=== PATIENT | male | born 1965 | race Caucasian/White ===

== ENCOUNTER 2017-05-21 16:46 | Inpatient (IN) | payer MEDICAID ==
[~2017-05-21] VITALS: Ht 30.5 cm; Wt 85.7 kg
[2017-05-21 18:00] VITALS: BP 121/68
[2017-05-21] MEDS ORDERED: HYDROcodone-ACET 5/325MG TAB PO PRN (18:15)
[2017-05-21] MEDS ORDERED: ALPRAZolam 0.5 MG TAB PO PRN (18:15)
[2017-05-21] MEDS ORDERED: NITROGLYCERIN 0.4 MG SL TAB SL PRN (18:15)
[2017-05-21] MEDS ORDERED: METOPROLOL TARTRATE 1MG/1ML-5ML VIAL IV PRN (18:15)
[2017-05-21] MEDS ORDERED: MORPHINE SULFATE 4 MG/ML SYR/VIAL IV PRN (18:15)
[2017-05-21] MEDS ORDERED: ACETAMINOPHEN 500 MG TAB PO PRN (18:15)
[2017-05-21] MEDS ORDERED: WARF2TAB55 PO (19:00)
[2017-05-21] MEDS ORDERED: DIGO1TAB35 PO (19:00)
[2017-05-21] MEDS ORDERED: METO-158 PO (19:00)
[2017-05-21 20:09] LABS: Basophils # (auto) 0.1 uL; Basophils % (auto) 1.2 % (0.0-2.0); Eosinophils # (auto) 0.1 uL; Eosinophils % (auto) 1.3 % (0.0-7.0); Hematocrit 41.4 % (41.0-53.0); Hemoglobin 13.4 g/dL (13.5-17.5); Lymphocytes # (auto) 1.5 uL; Lymphocytes % (auto) 17.6 % (10.0-50.0); Mean Corpuscular Hemoglobin 29.9 pg (28.0-32.0); Mean Corpuscular Hgb Conc. 32.3 g/dL (32.0-36.0); Mean Corpuscular Volume 92.7 fL (80.0-100.0); Monocytes # (auto) 1.1 uL; Neutrophils # (auto) 5.6 uL; Neutrophils % (auto) 66.9 % (37.0-80.0); Nucleated Red Blood Cells % 0.2 %; Platelet Count (auto) 164 10^3/uL (140-450); Red Blood Cells 4.47 10^6/uL (4.5-5.90); Red Cell Distribution Width 17.3 % (11.8-14.3); White Blood Cell 8.4 10^3/uL (4.4-10.8)
[2017-05-21 20:18] LABS: INR 1.69 (0.9-1.15); Partial Thromboplastin Time 29.4 sec (22.64-33.71); Prothrombin Time 18.5 sec (9.37-12.3)
[2017-05-21 20:38] LABS: Albumin 2.7 g/dL (3.4-5.0); BUN/Creatinine Ratio 16.9; Calcium 7.9 mg/dL (8.5-10.1); Potassium 4.2 mmol/L (3.5-5.1)
[2017-05-21 20:47] LABS: Bilirubin, Total 1.8 mg/dL (0.2-1.0)
[2017-05-21] MEDS: SODIUM CHLORIDE 0.9% 1,000 ML IV SCH (21:16)
[2017-05-21] MEDS: METOPROLOL TARTRATE 50 MG TAB PO SCH (21:16)
[2017-05-21 22:16] VITALS: BP 114/62
[2017-05-22] VITALS (10 sets, daily range): BP systolic 96–136; BP diastolic 56–93
[2017-05-22] MEDS ORDERED: LIDOCAINE 2%HCL (LOCAL ANESTH.) INJ 20ML MDV ONE ×2 (07:14→07:31)
[2017-05-22] MEDS ORDERED: fentaNYL CITRATE 100 MCG/2 ML VL ONE (07:33)
[2017-05-22] MEDS ORDERED: MIDAZOLAM HCL 1MG/1ML-2 ML VIAL ONE (07:33)
[2017-05-22] MEDS ORDERED: ceFAZolin 1GM/50ML 100 ML IV ONE (07:40)
[2017-05-22] MEDS ORDERED: FUROSEMIDE 20 MG/2 ML VIAL ONE (08:24)
[2017-05-22] MEDS ORDERED: FUROSEMIDE 20 MG/2 ML VIAL IV ONE (08:30)
[2017-05-22] MEDS ORDERED: HEPARIN SODIUM (PORCINE) 5000 UNITS/ML 1ML VIAL SC ONE (09:00)
[2017-05-22] MEDS ORDERED: DOBUTamine 1000MCG/ML 250 ML IV ONE (09:13)
[2017-05-22] MEDS ORDERED: DOBUTamine 1000MCG/ML 250 ML IV SCH (09:15)
[2017-05-22] MEDS ORDERED: SODIUM BICARBONATE 8.4 % INJ 50ML VIAL IV ONE ×2 (09:15)
[2017-05-22] MEDS ORDERED: SODIUM BICARBONATE 8.4% INJ 50ML SYRINGE ONE (09:16)
[2017-05-22] MEDS: METOPROLOL TARTRATE 50 MG TAB PO SCH (10:00)
[2017-05-22] MEDS: DOBUTamine 1000MCG/ML 250 ML IV SCH ×2 (14:18→21:00)
[2017-05-22] MEDS ORDERED: WARFARIN SODIUM 5 MG TAB PO ONE (17:00)
[2017-05-22] MEDS: SODIUM CHLORIDE 0.9% 1,000 ML IV SCH (22:00)
[2017-05-23] VITALS: BP 106/67
[2017-05-23 04:00] VITALS: BP 117/81
[2017-05-23 06:33] LABS: Basophils # (auto) 0.1 uL; Basophils % (auto) 1.1 % (0.0-2.0); Eosinophils # (auto) 0.1 uL; Eosinophils % (auto) 1.9 % (0.0-7.0); Hematocrit 38.1 % (41.0-53.0); Hemoglobin 12.6 g/dL (13.5-17.5); Lymphocytes # (auto) 1.3 uL; Lymphocytes % (auto) 18.4 % (10.0-50.0); Mean Corpuscular Hemoglobin 30.5 pg (28.0-32.0); Mean Corpuscular Hgb Conc. 33.1 g/dL (32.0-36.0); Mean Corpuscular Volume 92.3 fL (80.0-100.0); Monocytes # (auto) 0.8 uL; Monocytes % (auto) 11.8 % (0.0-12.0); Neutrophils # (auto) 4.7 uL; Neutrophils % (auto) 66.8 % (37.0-80.0); Nucleated Red Blood Cells % 0.2 %; Platelet Count (auto) 152 10^3/uL (140-450); Red Blood Cells 4.13 10^6/uL (4.5-5.90); Red Cell Distribution Width 17.2 % (11.8-14.3); White Blood Cell 7.1 10^3/uL (4.4-10.8)
[2017-05-23 06:35] LABS: INR 1.44 (0.9-1.15); Partial Thromboplastin Time 28.3 sec (22.64-33.71); Prothrombin Time 15.7 sec (9.37-12.3)
[2017-05-23 06:42] LABS: Calcium 8.2 mg/dL (8.5-10.1); Potassium 4.2 mmol/L (3.5-5.1)
[2017-05-23 08:00] VITALS: BP 114/85
[2017-05-23] MEDS: METOPROLOL TARTRATE 50 MG TAB PO SCH (10:22)
[2017-05-23 11:21] VITALS: BP 114/85
[2017-05-23 12:31] VITALS: BP 119/65
== END 2017-05-23 16:51 | disposition home or self-care (01) | DRG 175 ==
LOC: TELE-WESTW 16:46 → DOU IN ICU 05-22 11:55
PROVIDERS: ADMIT Internal Medicine; ATTEND Internal Medicine
PROC: 02583ZZ Destruction of Conduction Mechanism, Percutaneous Approach (ICD-10-PCS; principal; 2017-05-22)
PROC: 02K83ZZ Map Conduction Mechanism, Percutaneous Approach (ICD-10-PCS; 2017-05-22)
DX: I11.0 Hypertensive heart disease with heart failure (principal); D68.69 Other thrombophilia; Z79.01 Long term (current) use of anticoagulants; I48.91 Unspecified atrial fibrillation; K59.00 Constipation, unspecified; Z86.718 Personal history of other venous thrombosis and embolism; I50.43 Acute on chronic combined systolic (congestive) and diastolic (congestive) heart failure; Z82.49 Family history of ischemic heart disease and other diseases of the circulatory system; Z82.5 Family history of asthma and other chronic lower respiratory diseases
CPT/HCPCS: 36415; 36600; 71045; 80048; 80053; 82805; 85025; 85610; 85730; 87081; 93005; 93619; 93650; 94660; 99152; J0690; J2250